=== PATIENT | female | born 1985 | race Caucasian/White ===

== ENCOUNTER 2017-05-04 22:15 | Observation (INO) | payer BC ==
[~2017-05-04] VITALS: Ht 177.8 cm; Wt 117.0 kg
--- NOTE | ~2017-05-04 | CO ---
Unit #: [id number] #: [id number] Patient: TERRY SILVEIRA [id number] [address] [address] [id number] I MR#: [id number] NAME: TERRY SILVEIRA ROOM: [facility] Age: 32 Sex: F Admission Date: 05/05/2017 : 1985 Attending Physician: Rajesh Calvin M.D. Primary Care Physician: Balaji Bradford M.D. Consultation Date: 05/05/2017 CONSULTATION REPORT BRIEF HISTORY The patient is a 32-year-old lady with a 2-day history of right lower quadrant abdominal pain, some nausea. No vomiting. No diarrhea. No change in bowel habits. No hematemesis. No bright red blood per rectum. No history of trauma. Describes her pain is right lower quadrant nonradiating, persistent, crampy type pain. PAST MEDICAL HISTORY She has had thyroid dysfunction, asthma, anxiety, and depression. PAST SURGICAL HISTORY She has had a Lap-Band and carpal tunnel. SOCIAL HISTORY No smoking. No alcohol. FAMILY HISTORY Negative for GI malignancies. MEDICATIONS Prozac, Prilosec, Celebrex, Flonase, Symbicort, Ventolin. ALLERGIES She has allergies to penicillin and Bactrim. REVIEW OF SYSTEMS No cardiopulmonary complaints at this time. Else, 10 systems reviewed and negative. PHYSICAL EXAMINATION GENERAL: She is awake, alert, appropriate, currently afebrile. HEENT: Unremarkable. NECK: Supple. No JVD. Trachea midline. LUNGS: Clear to auscultation. Bilateral breath sounds symmetric. CARDIOVASCULAR: Regular rate and rhythm. ABDOMEN: Soft. It is tender in the right lower quadrant. Point tenderness at McBurney point. No rebound. No masses palpable. EXTREMITIES: No clubbing, cyanosis, or edema. DIAGNOSTIC STUDIES LABORATORY RESULTS: Labs are normal. IMAGING STUDIES: CT scan shows inflammation in the pericecal region. Unit #: [id number] #: [id number] Patient: TERRY SILVEIRA ASSESSMENT Appendicitis. PLAN Recommend laparoscopic appendectomy. Discussed in detail. We will proceed. Dictated by... Rajesh Calvin M.D. XIN/anders TD: 05/07/2017 01:30 JOB #: [id number] CONSULTATION REPORT Page 1 of 1 X Rajesh Calvin MD CONSULTATION REPORT
--- NOTE | ~2017-05-04 | CT2 ---
[facility] A Service of [facility] & [facility] RADIOLOGY TEXT RESULTS PATIENT: TERRY SILVEIRA LOCATION: [facility] 475-01 : [birth year] UNIT #: [id number] AGE: [address]: Rajesh Calvin MD SEX: F ORDER DR: [id number] [facility] [address] [place], [place] [address] [id number] I MR#: [id number] Acc #: [id number] NAME: TERRY SILVEIRA. : 1985 SEX: F STUDY DATE/TIME: 05/05/2017 01:28 UNIT: [facility] ROOM: [facility] STUDY DESCRIPTION: CT Abd and Pelv W Cont Attending Physician: Rajesh Calvin M.D. Ordering Physician: Ed Damien Sharma M.D. Primary Care Physician: Balaji Bradford M.D. MEDICAL IMAGING REPORT This report is preliminary unless electronic signature is present EXAM CT of abdomen and pelvis, 05/05/2017 at 01:28. INDICATIONS Abdominal pain with nausea, vomiting and diarrhea for 3 days. TECHNIQUE Axial images were obtained through the abdomen and pelvis following oral and IV contrast administration. Multiplanar reformats were obtained. This CT exam was performed with one or more of the following radiation dose reduction techniques: automatic exposure control, adjustment of mA and/or kV according to patient size, and iterative reconstruction. COMPARISON Comparison made with 09/03/2016. FINDINGS ABDOMEN: Lung bases are clear. The gallbladder is surgically absent. No biliary obstruction. Solid organs are normal. The gastric band remains in place. It is stable in position by CT. GI tract is normal. No adenopathy or free fluid. PELVIS: The appendix is dilated and fluid-filled and there is adjacent fat stranding. It measures 9 mm in diameter. Findings are compatible with acute appendicitis. No abscess is seen. The remainder of the GI tract is normal. The solid pelvic organs are normal. Urinary bladder is normal. Trace free fluid in the cul-de-sac is nonspecific and may be reactive. IMPRESSION 1. Study is positive for acute appendicitis. There is some periappendiceal fat stranding, but there is no abscess or free air. 2. Remainder of the GI tract is normal except for changes of gastric STS. [facility] A Service of [facility] & [facility] RADIOLOGY TEXT RESULTS PATIENT: TERRY SILVEIRA LOCATION: [facility] 475- : [birth year] UNIT #: [id number] AGE: [address]: Rajesh Calvin MD SEX: F ORDER DR: band placement. 3. Interval cholecystectomy. No biliary obstruction. 4. Trace free fluid in the cul-de-sac may be physiologic or reactive. Dictated by... Nathan Lucio Jr., M.D. THIS IS AN ELECTRONICALLY VERIFIED REPORT Nathan Lucio Jr., M.D. at 05/06/2017 4:56 AM MIRELA/savanah TD: 05/05/2017 22:14 JOB #: [id number] MEDICAL IMAGING REPORT Page 1 of 1 COPY
--- NOTE | ~2017-05-04 | OR ---
Unit #: [id number] #: [id number] Patient: TERRY SILVEIRA [id number] [address] [address] [id number] [place] MR#: [id number] NAME: TERRY SILVEIRA ROOM: [facility] Date of Procedure: 05/05/2017 Admission Date: 05/05/2017 Surgeon: Rajesh Calvin M.D. : 1985 Attending Physician: Rajesh Calvin M.D. Primary Care Physician: Balaji Bradford M.D. OPERATIVE REPORT PREOPERATIVE DIAGNOSIS Appendicitis. POSTOPERATIVE DIAGNOSIS Appendicitis. PROCEDURE PERFORMED Laparoscopic appendectomy. ANESTHESIA General anesthesia. ESTIMATED BLOOD LOSS Minimal. IV FLUIDS 700 crystalloid. COMPLICATIONS None. INDICATIONS FOR PROCEDURE The patient is a 31-year-old with appendicitis. DESCRIPTION OF PROCEDURE The patient was taken to the operative theater and placed in a supine position. General anesthesia was induced. The abdomen was prepped and draped. A 5-mm Optiview trocar was placed in left of the midline. The abdomen was insufflated to 15 mmHg with CO2. I then placed her in Trendelenburg. I placed a right lower quadrant 10 mm and left lower quadrant 5 mm port. I identified early appendicitis. I took down the adhesions and fired a ZACH stapler across the base of the appendix as well as the mesoappendix. The appendix was placed into an Endobag and then removed via the 10 mm port site. Hemostasis was adequate. I saw no other abnormalities. The ports were removed. The fascia was closed with 0 Vicryl and skin with 4-0 Vicryl. The patient tolerated the procedure well and was sent to the recovery room in good condition. Dictated by... Rajesh Calvin M.D. Unit #: [id number] #: [id number] Patient: TERRY SILVEIRA JNO/modl TD: 05/06/2017 04:43 JOB #: [id number] OPERATIVE REPORT Page 1 of 1 X Rajesh Calvin MD X PROCEDURE OPERATIVE NOTE
--- NOTE | ~2017-05-04 | EKG ---
PATIENT: TERRY SILVEIRA UNIT #: [id number] Ventricular Rate: 54 BPM Atrial Rate: 54 BPM P-R Interval: 148 ms QRS Duration: 92 ms Q-T Interval: 460 ms QTC Calculation(Bezet): 436 ms P Austin: 17 degrees Calculated R Austin: 23 degrees Calculated T Austin: 27 degrees Diagnosis Line: Sinus bradycardia with sinus arrhythmia Diagnosis Line: Otherwise normal ECG Diagnosis Line: When compared with ECG of 04-JUL-2013 09:35, Diagnosis Line: No significant change was found Diagnosis Line: Confirmed by ALEXEY LYNNE MD ([id number]) on 05/06/2017 Diagnosis Line: 3:00:24 PM INTERPRETING MD: MAGED BRODY
[~2017-05-04 22:15] MED LIST: ALBUTEROL17 GM INH; B COMPLEX1 CA1 PO; CELEBREX PO; CLARITIN10 MG PO; DEPO PROVERA; DORYX; DUONEB 2.5-0.5 M3 ML NEB; FISH OIL 1,2001 EAC2 PO; FLONASE16 GM; PRENATAL1 TA1 PO; PRILOSEC PO; PROZAC40 MG PO; SINGULAIR PO; SYMBICORT80 INH; ZYRTEC PO
[2017-05-04 23:28] LABS: BASOPHIL% 0.4 % (0-2.5); EOSINOPHIL# 0.1 X10e3 (0-0.7); EOSINOPHIL% 1.5 % (0.0-7.0); HEMATOCRIT 35.9 % (35.0-45.0); HEMOGLOBIN 12.1 gm/dL (12.0-16.0); LYMPHOCYTE# 2.8 X10e3 (1.0-3.5); LYMPHOCYTE% 32.6 % (17.0-45.0); MEAN CELL VOLUME 84.8 FL (83-96); MEAN CORPUSCULAR HEMOGLOBIN 28.6 PG (28-34); MEAN CORPUSCULAR HGB CONC 33.8 g/dL (30-36); MONOCYTE# 0.6 X10e3 (0-1.0); MONOCYTE% 7.1 % (3.0-12.0); NEUTROPHIL# 5.1 X10e3 (1.5-7.1); NEUTROPHIL% 58.4 % (40-75); PLATELET COUNT 176 X10e3 (140-420); RED BLOOD COUNT 4.24 X10e (3.90-5.30); RED CELL DISTRIBUTION WIDTH 13.6 % (11.0-15.5); WHITE BLOOD COUNT 8.7 X10e3 (4.0-10.5)
[2017-05-04 23:29] LABS: DIFF IND NO
[2017-05-04 23:52] LABS: BILIRUBIN, DIRECT 0.1 mg/dL (0.0-0.2); BILIRUBIN,INDIRECT 0.3 mg/dL (0.0-0.9); BILIRUBIN,TOTAL 0.4 mg/dL (0.2-2.0); BUN/CREATININE RATIO 13.33; CREATININE SERUM 0.6 mg/dL (0.6-1.4); GLOM FILT RATE Estimated 121.5 mL/min (>60); POTASSIUM 3.7 mmol/L (3.5-5.1); PROTEIN TOTAL SERUM 7.2 g/dL (6.0-8.3)
[2017-05-05 00:10] LABS: URINE SOURCE CLEAN CATCH
[2017-05-05 00:26] LABS: URINE APPEARANCE CLEAR; URINE BLOOD NEG (NEG); URINE COLOR DK YELLOW; URINE GLUCOSE NEG (NEG); URINE KETONE TRACE (NEG); URINE LEUKOCYTE ESTERASE NEG (NEG); URINE NITRATE NEG (NEG); URINE PH 5.5 (5-8); URINE PROTEIN NEG (NEG); URINE SPECIFIC GRAVITY 1.036 (1.003-1.035)
[2017-05-05 00:35] LABS: CULTURE INDICATED? NO; URINE BILIRUBIN NEG (NEG)
[2017-05-05] MEDS ORDERED: ABILIFY5 MG PO (03:25)
[2017-05-05] MEDS ORDERED: HYDROCODON-ACE1 EAC9 PO (12:38)
== END 2017-05-05 13:40 | disposition home or self-care (01) | DRG 373 ==
LOC: CED 22:15 → CEDOF 05-05 03:00 → C4C 05-05 03:41
DX: K35.3 Acute appendicitis with localized peritonitis (principal); K21.9 Gastro-esophageal reflux disease without esophagitis; Z88.0 Allergy status to penicillin; Z88.2 Allergy status to sulfonamides; Z88.5 Allergy status to narcotic agent; Z98.84 Bariatric surgery status
CPT/HCPCS: 36415; 74177; 80048; 80076; 81003; 83690; 84703; 85025; 88304; 93005; 96361; 96365; 96374; 96375; 99285; G0378; J0330; J1100; J1170; J1885; J2250; J2270; J2405; J2543; J2710; J3010; Q9967

== ENCOUNTER 2017-05-13 20:59 | Emergency (ER) | payer BC ==
[~2017-05-13] VITALS: Ht 177.8 cm; Wt 117.0 kg
[~2017-05-13 20:59] MED LIST changes: +ABILIFY5 MG PO; +HYDROCODON-ACE1 EAC9 PO
[2017-05-13 23:06] LABS: URINE SOURCE CLEAN CATCH
[2017-05-13 23:12] LABS: BASOPHIL% 0.7 % (0-2.5); EOSINOPHIL# 0.2 X10e3 (0-0.7); EOSINOPHIL% 3.2 % (0.0-7.0); HEMATOCRIT 38.2 % (35.0-45.0); HEMOGLOBIN 12.9 gm/dL (12.0-16.0); LYMPHOCYTE# 3.1 X10e3 (1.0-3.5); LYMPHOCYTE% 41.2 % (17.0-45.0); MEAN CELL VOLUME 84.9 FL (83-96); MEAN CORPUSCULAR HEMOGLOBIN 28.7 PG (28-34); MEAN CORPUSCULAR HGB CONC 33.8 g/dL (30-36); MEAN PLATELET VOLUME 9.6 FL (6.5-11.5); MONOCYTE# 0.7 X10e3 (0-1.0); NEUTROPHIL# 3.4 X10e3 (1.5-7.1); NEUTROPHIL% 45.9 % (40-75); PLATELET COUNT 233 X10e3 (140-420); RED CELL DISTRIBUTION WIDTH 13.5 % (11.0-15.5); WHITE BLOOD COUNT 7.4 X10e3 (4.0-10.5)
[2017-05-13 23:13] LABS: URINE APPEARANCE CLEAR; URINE BILIRUBIN NEG (NEG); URINE BLOOD NEG (NEG); URINE COLOR YELLOW; URINE GLUCOSE NEG (NEG); URINE KETONE NEG (NEG); URINE LEUKOCYTE ESTERASE NEG (NEG); URINE NITRATE NEG (NEG); URINE PROTEIN NEG (NEG); URINE SPECIFIC GRAVITY 1.027 (1.003-1.035)
[2017-05-13 23:13] LABS: DIFF IND NO
[2017-05-13 23:18] LABS: CULTURE INDICATED? NO
[2017-05-13 23:57] LABS: ALBUMIN SERUM 4.3 g/dL (3.5-5.0); ALKALINE PHOSPHATASE 61 U/L (32-92); ALT (SGPT) 29 U/L (10-40); AST (SGOT) 19 U/L (10-42); BILIRUBIN, DIRECT <0.1 mg/dL (0.0-0.2); BILIRUBIN,TOTAL <0.1 mg/dL (0.2-2.0); BLOOD UREA NITROGEN 13 mg/dL (9-23); BUN/CREATININE RATIO 18.57; CALCIUM SERUM 9.5 mg/dL (8.4-10.2); CARBON DIOXIDE 25 mmol/L (22-31); CHLORIDE 107 mmol/L (100-111); CREATININE SERUM 0.7 mg/dL (0.6-1.4); GLOM FILT RATE Estimated 115.5 mL/min (>60); GLUCOSE FASTING 87 mg/dL (70-110); LIPASE 18 U/L (22-51); POTASSIUM 4.1 mmol/L (3.5-5.1); PROTEIN TOTAL SERUM 7.8 g/dL (6.0-8.3); SODIUM 140 mmol/L (135-145)
== END 2017-05-14 00:19 | disposition home or self-care (01) ==
LOC: CED 20:59
DX: G89.18 Other acute postprocedural pain (principal); R10.31 Right lower quadrant pain; J45.909 Unspecified asthma, uncomplicated; Z90.49 Acquired absence of other specified parts of digestive tract; Z88.0 Allergy status to penicillin; Z88.2 Allergy status to sulfonamides; Z79.899 Other long term (current) drug therapy
CPT/HCPCS: 36415; 80048; 80076; 81003; 83690; 84703; 85025; 99284

== ENCOUNTER → 2017-05-14 | Outpatient (CLI) | payer BC ==
--- NOTE | ~2017-05-14 | CT2 ---
[facility] A Service of [facility] & [facility] RADIOLOGY TEXT RESULTS PATIENT: TERRY SILVEIRA LOCATION: [facility] : [birth year] UNIT #: [id number] AGE: [address]: Rajesh Calvin MD SEX: F ORDER DR: [id number] [facility] [address] [place], [place] [address] [id number] O MR#: [id number] Acc #: [id number] NAME: TERRY SILVEIRA. : 1985 SEX: F STUDY DATE/TIME: 05/14/2017 UNIT: [facility] ROOM: STUDY DESCRIPTION: CT Abd and Pelv W Cont Attending Physician: Rajesh Calvin M.D. Referring Physician: Rajesh Calvin M.D. Ordering Physician: Rajesh Calvin M.D. Primary Care Physician: Balaji Bradford M.D. MEDICAL IMAGING REPORT This report is preliminary unless electronic signature is present EXAM CT abdomen and pelvis with contrast 05/14/2017 1324 hours HISTORY Abdominal pain in the mid- to lower abdomen since yesterday. History of appendectomy 05/05/2017. Prior cholecystectomy. COMPARISON CT abdomen and pelvis 05/05/2017. TECHNIQUE Dynamic helical CT images were obtained from the lung bases through the pubic symphysis. Sagittal and coronal reconstructions were performed. Contrast was Isovue-370 100 mL IV. Total exam DLP 1062 mGy/cm. This CT exam was performed with one or more of the following radiation dose reduction techniques: automatic exposure control, adjustment of mA and/or kV according to patient size, and iterative reconstruction. FINDINGS Images through the lung bases are clear. Images through the upper abdomen demonstrate postop change of prior lap-band placement without change. The liver, spleen are unchanged. The pancreas demonstrates a vague low-density area in the head of the pancreas which is unchanged and appears to represent some fatty change. This is stable. The gallbladder is surgically absent. The bile ducts are normal. The adrenal glands and kidneys are normal. The stomach is non-distended. The small bowel is partially opacified with contrast. There is no small bowel distension or small bowel wall STS. [facility] A Service of [facility] & [facility] RADIOLOGY TEXT RESULTS PATIENT: TERRY SILVEIRA [facility] : [birth year] UNIT #: [id number] AGE: [address]: Rajesh Calvin MD SEX: F ORDER DR: sonny. There are surgical clips along the medial inferior wall of the cecum consistent with recent appendectomy change. There is very minimal stranding of the adjacent fat consistent with recent surgery. There is no fluid collection, free fluid or abscess. The colon is non-distended. No colonic wall thickening is seen. IMPRESSION Interval appendectomy with postop change at the medial inferior wall of the cecum. There is no fluid, fluid collection or abscess. There is no bowel distension or bowel wall thickening. Dictated by... Annabelle Thompson M.D. THIS IS AN ELECTRONICALLY VERIFIED REPORT Annabelle Thompson M.D. at 05/15/2017 9:11 AM PIPPA/nadeem TD: 05/14/2017 23:42 JOB #: [id number] MEDICAL IMAGING REPORT Page 1 of 1 COPY
== END | disposition home or self-care (01) ==
LOC: CCAT 11:35
DX: R10.9 Unspecified abdominal pain (principal); Z90.49 Acquired absence of other specified parts of digestive tract; Z88.0 Allergy status to penicillin; Z88.1 Allergy status to other antibiotic agents
CPT/HCPCS: 74177; Q9967